=== PATIENT | female | born 1985 | race African-American/Black ===

== ENCOUNTER 2018-06-11 15:53 | Inpatient (IN) | payer MEDICAID ==
[~2018-06-11] VITALS: Ht 165.1 cm; Wt 65.0 kg
[~2018-06-11 15:53] MED LIST: CLIN300C85 PO; NO HOME MEDS
[2018-06-11] MEDS ORDERED: niCARDipine/sod cl 20mg/200ml 200 ML IV ONE (16:10)
[2018-06-11] MEDS: niCARDipine-NS 40mg/200ml IVPB 200 ML IV SCH (17:10)
[2018-06-11 17:26] LABS: BASOPHILS % (AUTO) 0.9 % (0-1); HEMATOCRIT 34.6 % (35.0-45.0); HEMOGLOBIN 11.3 g/dl (12.0-16.0); LYMPHOCYTES # (AUTO) 1.3 X10'3 (1.1-4.8); LYMPHOCYTES % (AUTO) 28.6 % (21-51); MEAN CORPUSCULAR HEMOGLOBIN 26.9 PG (27.0-31.0); MEAN CORPUSCULAR HGB CONC 32.8 g/dL (33.0-36.5); MEAN CORPUSCULAR VOLUME 82.1 FL (78-98); MEAN PLATELET VOLUME 7.5 FL (7.4-10.4); MONOCYTES # (AUTO) 0.5 X10'3 (0-0.9); MONOCYTES % (AUTO) 11.1 % (2-12); NEUTROPHILS # (AUTO) 2.7 X10'3 (1.8-7.7); NEUTROPHILS % (AUTO) 58.4 % (42-75); PLATELET COUNT 330 X10'3 (140-440); RED BLOOD COUNT 4.21 X10'6 (4.20-5.60); RED CELL DISTRIBUTION WIDTH 16.1 % (11.5-14.5); WHITE BLOOD COUNT 4.7 X10'3 (4.5-11.0)
[2018-06-11 17:34] LABS: ALANINE AMINOTRANSFERASE 35 U/L (12-78); ALBUMIN 3.9 G/DL (3.4-5.0); ALKALINE PHOSPHATASE 94 IU/L (46-116); ANION GAP 11 (8-16); ASPARTATE AMINO TRANSFERASE 44 U/L (10-37); BILIRUBIN,TOTAL 0.5 MG/DL (0.1-1.0); BLOOD UREA NITROGEN 8 MG/DL (7-18); BUN/CREATININE RATIO 11.4 (6.6-38.0); CALCIUM 9.1 MG/DL (8.5-10.1); CHLORIDE 100 MMOL/L (99-107); GLUCOSE 82 MG/DL (70-104); POTASSIUM 3.2 MMOL/L (3.5-5.1); SODIUM 138 MMOL/L (135-145); TOTAL CARBON DIOXIDE 26.9 MMOL/L (24-32); eGFR > 90 ML/MIN
[2018-06-11] MEDS ORDERED: labetalol 20mg/4ml (5mg/ml) syringe IV ONE (17:40)
[2018-06-11 17:41] LABS: ETHANOL < 0.010 GM/DL (0.0-0.010); MAGNESIUM 1.7 MG/DL (1.5-2.4)
[2018-06-11 18:16] LABS: URINE AMPHETAMINE SCREEN POSITIVE (Neg); URINE BARBITUATE SCREEN NEGATIVE (Neg); URINE BENZODIAZEPINES SCREEN NEGATIVE (Neg); URINE CANNABINOID SCREEN NEGATIVE (Neg); URINE COCAINE SCREEN NEGATIVE (Neg); URINE METHADONE SCREEN NEGATIVE (Neg); URINE OPIATE SCREEN POSITIVE (Neg); URINE PHENCYCLIDINE SCREEN NEGATIVE (Neg)
[2018-06-11] MEDS ORDERED: mag hydrox/Alum hydrox/simeth 30ml oral suspension PO PRN (19:10)
[2018-06-11] MEDS ORDERED: magnesium hydroxide 30ml (MOM) UD suspension PO PRN (19:10)
[2018-06-11] MEDS ORDERED: ondansetron/PF 4mg/2ml inj IV PRN (19:10)
[2018-06-11] MEDS ORDERED: acetaminophen 325mg tablet PO PRN (19:10)
[2018-06-11] MEDS ORDERED: morphine 4 MG/ML inj SYRINge IV PRN ×2 (19:10)
[2018-06-11 19:59] LABS: CLARITY,URINE CLEAR (Clear); COLOR,URINE YELLOW (Yellow); GLUCOSE, URINE 100 mg/dl (Neg); KETONES,URINE 40 mg/dl (Neg); LEUKOCYTE ESTERASE ,URINE NEGATIVE (Neg); NITRITES, URINE NEGATIVE (Neg); OCCULT BLOOD,URINE NEGATIVE (Neg); PROTEIN,URINE NEGATIVE (Neg); UROBILINOGEN,URINE 0.2 E.U/dL (0.2-1.0)
[2018-06-11 20:07] LABS: UA COLLECTION TYPE OTHER
[2018-06-11 23:00] VITALS: BP 129/88
[2018-06-11] MEDS ORDERED: nitroGLYCERIN 0.4mg SUBLingual tab SL PRN (23:35)
[2018-06-11] MEDS ORDERED: methadone 10mg tablet PO ONE (23:40)
[2018-06-11] MEDS: HYDROcodone/acetaminophen 5mg/325mg tablet PO PRN (23:52)
[2018-06-12] VITALS (9 sets, daily range): BP systolic 122–137; BP diastolic 71–96
--- NOTE | 2018-06-12 00:03 | NUR ---
Patient admitted via stretcher from ED @ 2305 and oriented to room, call nash and current plan of care. MD Garcia and significant other at bedside discussing treatment. Cardene gtt infusing at 5mg/hour. BP 129/88 HR 114 O2 100% on room air RR 16. Patient complains of headache and mild chest discomfort. Orders received to administer nitro sublingual. Will continue to monitor patient closely.
[2018-06-12] MEDS: niCARDipine-NS 40mg/200ml IVPB 200 ML IV SCH ×3 (00:15→08:15)
--- NOTE | 2018-06-12 02:00 | NUR ---
Orientee Medication Administration: For this medication-pass time frame, all medication were reviewed, dispensed, administered and documented per hospital policy by Kajal ROBISON. Orientee documentation: I have reviewed and agree with all interventions, assessments performed and documented by Kajal ROBISON.
[2018-06-12 05:25] LABS: ALBUMIN 3.9 G/DL (3.4-5.0); ANION GAP 11 (8-16); BLOOD UREA NITROGEN 10 MG/DL (7-18); CALCIUM 9.4 MG/DL (8.5-10.1); CHLORIDE 101 MMOL/L (99-107); CREATININE 0.77 MG/DL (0.40-0.90); GLUCOSE 113 MG/DL (70-104); POTASSIUM 3.9 MMOL/L (3.5-5.1); SODIUM 139 MMOL/L (135-145); TOTAL CARBON DIOXIDE 27.5 MMOL/L (24-32); eGFR > 90 ML/MIN
--- NOTE | 2018-06-12 06:06 | NUR ---
Problems reprioritized. Patient report given, questions answered & plan of care reviewed with Bob ROBISON.
--- NOTE | 2018-06-12 06:14 | NUR ---
Patient in room PCU 3023. I have received report from ENRIQUETA Contreras and had the opportunity to ask questions and assume patient care.
[2018-06-12] MEDS ORDERED: FLU VACC QUAD 2018(5 YR UP)/PF 60 MCG/0.5 ML SYRINGE IM ONE (10:00)
[2018-06-12] MEDS ORDERED: amLODIPine 5mg tablet PO ONE (10:20)
[2018-06-12] MEDS: carvedilol 6.25mg tablet PO SCH ×2 (10:27→20:53)
[2018-06-12] MEDS: HYDROcodone/acetaminophen 5mg/325mg tablet PO PRN (13:51)
[2018-06-12] MEDS ORDERED: aminophylline 250mg/10ml inj. IV PRN (15:15)
[2018-06-12] MEDS ORDERED: metoprolol tartrate 1mg/ml inj IV PRN (15:15)
[2018-06-12] MEDS ORDERED: nitroGLYCERIN 0.4mg SUBLingual tab SL PRN (15:15)
[2018-06-12] MEDS ORDERED: regadenoson 0.4mg/5ml syringe IV ONE (15:15)
--- NOTE | 2018-06-12 15:52 | NUR ---
PAGER ID: [phone] MESSAGE: [id number] Génesis Seth: [facility]uc med called and said she will need a cardio consult before they can take her down. ENRIQUETA Rojas Ext [id number]
--- NOTE | 2018-06-12 17:50 | NUR ---
PAGER ID: [phone] MESSAGE: [phone] [id number] she is wondering if she can get methadone for withdrawals and some meds for sleep tonight. ENRIQUETA Rojas Ext [id number]
--- NOTE | 2018-06-12 18:03 | NUR ---
Problems reprioritized. Patient report given, questions answered & plan of care reviewed with ENRIQUETA Rdz.
[2018-06-12] MEDS ORDERED: methadone 10mg tablet PO SCH (21:00)
[2018-06-12] MEDS ORDERED: traZODone 50mg tablet PO SCH (21:00)
[2018-06-13 02:50] VITALS: BP 102/74
[2018-06-13 06:00] VITALS: BP 84/48
--- NOTE | 2018-06-13 06:52 | NUR ---
Patient in room PCU 3024. I have received report from Kajal ROBISON and had the opportunity to ask questions and assume patient care. Pt is resting comfortably in no apparent distress, pt alert and oriented X 4, will continue to monitor.
[2018-06-13 07:00] VITALS: BP 86/51
[2018-06-13 07:00] LABS: ALBUMIN 3.3 G/DL (3.4-5.0); ANION GAP 8 (8-16); BLOOD UREA NITROGEN 24 MG/DL (7-18); BUN/CREATININE RATIO 14.4 (6.6-38.0); CALCIUM 8.8 MG/DL (8.5-10.1); CHLORIDE 100 MMOL/L (99-107); CREATININE 1.67 MG/DL (0.40-0.90); GLUCOSE 114 MG/DL (70-104); POTASSIUM 3.5 MMOL/L (3.5-5.1); SODIUM 138 MMOL/L (135-145); TOTAL CARBON DIOXIDE 30.1 MMOL/L (24-32); eGFR 44 ML/MIN
[2018-06-13] MEDS: carvedilol 6.25mg tablet PO SCH (08:00)
[2018-06-13] MEDS ORDERED: amLODIPine 5mg tablet PO SCH (08:00)
--- NOTE | 2018-06-13 08:02 | NUR ---
PAGER ID: [phone] MESSAGE: [phone] Génesis Seth Med can not do yen scan yet, they need another trop drawn to see trops are still trending down, please call, Alma Delia# [phone]
[2018-06-13 09:30] VITALS: BP 106/59
[2018-06-13] MEDS ORDERED: AMLO2.5T2 PO (10:09)
--- NOTE | 2018-06-13 11:33 | NUR ---
IV discontinued with canula intact, tele discontinued and returned tele monitor back to tele room. Reviewed discharge instructions with patient which included education in regards to new medication, signs and symptoms of high blood pressure and when to return to the hospital. Pt refused social service consult and and referrals to rehabs. Pt stated she had relapsed once and does not feel as though she needs rehab. Instructed pt to follow up with primary care provider within one week. Pt in stable condition and left with belongings. Pt discharged and wheeled off floor in stable condition.
--- NOTE | 2018-06-13 11:48 | NUR ---
Pt. arranged for her own ride home, family to pick her up from the hospital. Alert Oriented and Able to make good decisions. She received instructions for follow up care and those instructions are well understood. She has her written instructions, and visit linda. She will call her primary care physician today for a follow up appointment, she is instructed to ask for a blood pressure machine prescription at the time of her call for this follow up appointment. She understands the importance of taking her blood pressure prior to taking her blood pressure medication. Pt. is independent in all ADL's, and steady on her feet at discharge with no signs or symptoms of distress. Denies desire for drug rehabilitation information at this time. Addiction and family dynamic information is provided.
== END 2018-06-13 11:30 | disposition home or self-care (01) | DRG 199 ==
LOC: ER 15:53 → ED HOLD 19:09 → PCU 3S 23:16
PROVIDERS: ADMIT Internal Medicine; ATTEND Family Medicine
DX: I16.1 Hypertensive emergency (principal); F11.10 Opioid abuse, uncomplicated; F17.210 Nicotine dependence, cigarettes, uncomplicated; G43.909 Migraine, unspecified, not intractable, without status migrainosus; I10 Essential (primary) hypertension; F15.10 Other stimulant abuse, uncomplicated
CPT/HCPCS: 36415; 70450; 71045; 80048; 80053; 80305; 80320; 81003; 83735; 83880; 84484; 85025; 87070; 93005; 93306; 96365; 96375; 99291; G0378; J3490; Q2037

== ENCOUNTER 2018-09-08 22:53 | Emergency (ER) | payer MEDICAID ==
[~2018-09-08] VITALS: Ht 165.1 cm; Wt 61.0 kg
[2018-09-08] MEDS ORDERED: SULF1TAB49 PO (23:52)
[2018-09-08] MEDS ORDERED: sulfamethoxazole/trimethoprim DS (800/160mg) tablet PO ONE (23:55)
[2018-09-09 00:40] VITALS: BP 155/103
== END 2018-09-09 00:44 | disposition home or self-care (01) ==
LOC: ER 22:53
DX: L03.115 Cellulitis of right lower limb (principal); F15.90 Other stimulant use, unspecified, uncomplicated; Z59.0 Homelessness; Z79.899 Other long term (current) drug therapy
CPT/HCPCS: 99283

== ENCOUNTER 2018-11-10 01:28 | Emergency (ER) | payer MEDICAID ==
[~2018-11-10] VITALS: Ht 165.1 cm; Wt 62.0 kg
[2018-11-10 03:31] VITALS: BP 129/91
== END 2018-11-10 04:45 | disposition home or self-care (01) ==
LOC: ER 01:29
DX: R51 Headache (principal); F17.200 Nicotine dependence, unspecified, uncomplicated; F15.90 Other stimulant use, unspecified, uncomplicated; Z59.0 Homelessness
CPT/HCPCS: 99283

== ENCOUNTER 2019-02-17 07:16 | Emergency (ER) | payer MEDICAID | END 2019-02-17 07:45 | disposition left against medical advice (07) | LOC: ER 07:17 | DX: M25.579 Pain in unspecified ankle and joints of unspecified foot (principal); Z53.21 Procedure and treatment not carried out due to patient leaving prior to being seen by health care provider ==

== ENCOUNTER 2019-04-06 22:57 | Emergency (ER) | payer MEDICAID ==
[~2019-04-06] VITALS: Ht 165.1 cm; Wt 63.6 kg
--- NOTE | 2019-04-07 00:19 | NUR ---
Pt is sleeping, respirations even and unlabored. Pt has NSR on the monitor. Pt has stable vitals.
[2019-04-07 00:31] VITALS: BP 137/85
== END 2019-04-07 00:28 | disposition home or self-care (01) ==
LOC: ER 22:57
DX: R07.89 Other chest pain (principal); F15.90 Other stimulant use, unspecified, uncomplicated; F17.200 Nicotine dependence, unspecified, uncomplicated; Z59.0 Homelessness
CPT/HCPCS: 71045; 93005; 99283

== ENCOUNTER 2020-05-26 06:41 | Emergency (ER) | payer MEDICAID ==
[~2020-05-26] VITALS: Ht 165.1 cm; Wt 63.6 kg
[2020-05-26 07:06] VITALS: BP 201/129
[2020-05-26] MEDS ORDERED: DOXYCYCLINE 100MG CAPSULE PO STA (07:49)
[2020-05-26] MEDS ORDERED: cephalexin 500mg capsule PO ONE (07:50)
[2020-05-26] MEDS ORDERED: DOXY100C43 PO (07:51)
[2020-05-26] MEDS ORDERED: CEPH500C5 PO (07:51)
== END 2020-05-26 08:05 | disposition home or self-care (01) ==
LOC: ER 06:42
DX: L03.116 Cellulitis of left lower limb (principal); F11.10 Opioid abuse, uncomplicated; F15.90 Other stimulant use, unspecified, uncomplicated; Z59.0 Homelessness; Z79.2 Long term (current) use of antibiotics
CPT/HCPCS: 76882; 99284

== ENCOUNTER 2021-11-06 06:38 | Emergency (ER) | payer MEDICAID ==
[~2021-11-06] VITALS: Ht 165.1 cm; Wt 62.5 kg
[2021-11-06] MEDS ORDERED: labetalol 100mg tablet PO SCH (07:00)
--- NOTE | 2021-11-06 07:01 | NUR ---
On patients external med history patient had a prescription for labetalol 100 mg BID for a 30 day supply as of april. Addendum: 11/06/21 at [address] Otoole aware of patients blood pressure and previously prescribed labetalol. Dr. Otoole gave verbal order for labetalol 100 mg once now.
[2021-11-06] MEDS ORDERED: oxymetazoline 15 ML nasal spray NS ONE (08:05)
[2021-11-06] MEDS ORDERED: LIDOcaine 40mg/ml topical solution MM ONE ×2 (08:10→10:25)
--- NOTE | 2021-11-06 09:37 | NUR ---
PATIENT CLEARED FOR DISHCARGE AT THIS TIME. ADVISED TO FOLLOW UP WITH PCP AND RETURN IF CONDITION WORSENS. NO OTHER COMLPAINTS OR CONECRNS AT THIS TIME FOLLOWING DISHCARGE TEACHING.
[2021-11-06] MEDS ORDERED: silver nitrate applicator stick TP ONE (10:05)
[2021-11-06 11:29] VITALS: BP 168/102
== END 2021-11-06 09:45 | disposition home or self-care (01) ==
LOC: ER 06:38
DX: R04.0 Epistaxis (principal); F17.200 Nicotine dependence, unspecified, uncomplicated; F12.10 Cannabis abuse, uncomplicated; Z59.00 Homelessness unspecified
CPT/HCPCS: 99283; J3490

== ENCOUNTER 2021-11-08 22:59 | Emergency (ER) | payer MEDICAID ==
[~2021-11-08] VITALS: Ht 165.1 cm; Wt 63.6 kg
[2021-11-09] MEDS ORDERED: cloNIDine 0.1 mg tablet PO ONE ×2 (10:00→11:05)
[2021-11-09] MEDS ORDERED: oxymetazoline 15 ML nasal spray NS ONE (10:00)
[2021-11-09] MEDS ORDERED: LORazepam 2 mg/ml vial IM ONE (12:15)
[2021-11-09 15:03] VITALS: BP 146/89
[2021-11-09] MEDS ORDERED: NALO4SPR BOTHNARES (20:53)
== END 2021-11-09 15:00 | disposition home or self-care (01) ==
LOC: ER 22:59
DX: R04.0 Epistaxis (principal); I10 Essential (primary) hypertension; F15.10 Other stimulant abuse, uncomplicated
CPT/HCPCS: 96372; 99285; J2060; 93005

== ENCOUNTER 2021-11-09 20:04 | Emergency (ER) | payer MEDICAID ==
[~2021-11-09] VITALS: Ht 165.1 cm; Wt 63.6 kg
[2021-11-09] MEDS ORDERED: naloxone 2mg/2ml inj NAS ONE (20:35)
[2021-11-09 20:43] VITALS: BP 170/117
[2021-11-09] MEDS ORDERED: NALO4SPR BOTHNARES (20:53)
--- NOTE | 2021-11-09 20:56 | NUR ---
Patient ambulated to bathroom with no assistance. Pt stated she wants to leave
== END 2021-11-09 21:06 | disposition home or self-care (01) ==
LOC: ER 20:05
DX: T40.2X1A Poisoning by other opioids, accidental (unintentional), initial encounter (principal); R04.0 Epistaxis; Y92.89 Other specified places as the place of occurrence of the external cause; Z59.00 Homelessness unspecified
CPT/HCPCS: 99283; J2310

== ENCOUNTER 2023-12-31 11:51 | Emergency (ER) | payer MEDICAID, SELFPAY ==
[~2023-12-31] VITALS: Ht 165.1 cm; Wt 63.6 kg
[~2023-12-31 11:51] MED LIST changes: -CLIN300C85 PO; +clonidine PO
[2023-12-31] MEDS: cloNIDine 0.1 mg tablet PO ONE ×2 (12:51→16:14)
[2023-12-31] MEDS: normal saline 1000ml 1,000 ML IV ONE (13:20)
[2023-12-31 13:21] LABS: BASOPHILS % (AUTO) 0.3 % (0-1); EOSINOPHILS % (AUTO) 0.1 % (0-6); HEMATOCRIT 37.3 % (35.0-45.0); HEMOGLOBIN 12.4 g/dl (12.0-16.0); LYMPHOCYTES # (AUTO) 0.7 X10'3 (1.1-4.8); LYMPHOCYTES % (AUTO) 7.1 % (21-51); MEAN CORPUSCULAR HEMOGLOBIN 29.3 PG (27.0-31.0); MEAN CORPUSCULAR HGB CONC 33.2 g/dL (33.0-36.5); MEAN CORPUSCULAR VOLUME 88.2 FL (78-98); MEAN PLATELET VOLUME 7.3 FL (7.4-10.4); MONOCYTES # (AUTO) 0.2 X10'3 (0-0.9); MONOCYTES % (AUTO) 2.4 % (2-12); NEUTROPHILS # (AUTO) 8.6 X10'3 (1.8-7.7); NEUTROPHILS % (AUTO) 90.1 % (42-75); PLATELET COUNT 506 X10'3 (140-440); RED BLOOD COUNT 4.23 X10'6 (4.20-5.60); RED CELL DISTRIBUTION WIDTH 14.4 % (11.5-14.5); WHITE BLOOD COUNT 9.6 X10'3 (4.5-11.0)
[2023-12-31] MEDS: metoclopramide 5 mg/ml inj IV ONE (13:21)
[2023-12-31] MEDS: diphenhydrAMINE 50 mg/ml inj IV ONE (13:21)
[2023-12-31 13:33] LABS: BILIRUBIN,URINE NEGATIVE (Neg); CLARITY,URINE CLOUDY (Clear); COLOR,URINE YELLOW (Yellow); GLUCOSE, URINE >=1000 mg/dl (Neg); KETONES,URINE NEGATIVE (Neg); LEUKOCYTE ESTERASE ,URINE NEGATIVE (Neg); NITRITES, URINE NEGATIVE (Neg); OCCULT BLOOD,URINE TRACE-INTACT (Neg); PH,URINE 6.5 (4.8-8.0); PROTEIN,URINE 30 mg/dl (Neg); URINE HCG NEGATIVE (NEG); UROBILINOGEN,URINE 0.2 E.U/dL (0.2-1.0)
[2023-12-31 13:37] LABS: ALANINE AMINOTRANSFERASE 43 U/L (12-78); ALBUMIN 2.9 G/DL (3.4-5.0); ALBUMIN/GLOBULIN RATIO 0.5 (1.1-1.5); ALKALINE PHOSPHATASE 147 IU/L (46-116); ANION GAP 8 (8-16); BILIRUBIN,TOTAL 0.4 MG/DL (0.1-1.0); BLOOD UREA NITROGEN 9 MG/DL (7-18); BUN/CREATININE RATIO 10.3 (10.0-20.0); CALCIUM 9.4 MG/DL (8.5-10.1); CHLORIDE 98 MMOL/L (99-107); CREATININE 0.87 MG/DL (0.40-0.90); GLUCOSE 152 MG/DL (70-104); SODIUM 137 MMOL/L (135-145); TOTAL CARBON DIOXIDE 30.6 MMOL/L (24-32); TOTAL PROTEIN 8.8 G/DL (6.4-8.2); eCRCL 80 ML/MIN; eGFR 89 ML/MIN
[2023-12-31 13:39] LABS: UA COLLECTION TYPE VOIDED
[2023-12-31 13:40] LABS: BACTERIA,URINE 4+ /HPF (Neg); SQUAMOUS EPITHELIAL CELL,UR MODERATE /LPF (FEW)
[2023-12-31 13:41] LABS: URINE AMPHETAMINE SCREEN NEGATIVE (Neg); URINE BARBITUATE SCREEN NEGATIVE (Neg); URINE BENZODIAZEPINES SCREEN NEGATIVE (Neg); URINE CANNABINOID SCREEN NEGATIVE (Neg); URINE COCAINE SCREEN NEGATIVE (Neg); URINE METHADONE SCREEN NEGATIVE (Neg); URINE OPIATE SCREEN NEGATIVE (Neg); URINE PHENCYCLIDINE SCREEN NEGATIVE (Neg); WBC,URINE 50-100 /HPF (0-4)
[2023-12-31 13:48] LABS: PRO BRAIN NATRIURETIC PEPTIDE 1299 PG/ML (0-125); THYROID STIMULATING HORMONE 0.12 ulU/ml (0.34-4.50)
[2023-12-31 13:50] LABS: ASPARTATE AMINO TRANSFERASE 35 U/L (10-37); POTASSIUM 3.6 MMOL/L (3.5-5.1)
[2023-12-31 13:57] LABS: HCG SERUM QL NEGATIVE
[2023-12-31] MEDS: LORazepam 1 MG tablet PO ONE ×2 (14:06→17:30)
[2023-12-31] MEDS: labetalol 20mg/4ml (5mg/ml) syringe IV ONE (14:12)
[2023-12-31] MEDS: ondansetron/PF 4mg/2ml inj IV ONE (14:12)
[2023-12-31] MEDS: proCHLORperazine 10 MG/2 ml inj IV ONE (14:30)
[2023-12-31] MEDS: hydrALAZINE 20mg/ml inj. IV ONE (16:15)
[2023-12-31] MEDS: naloxone 0.4 mg/ml inj IV ONE (17:11)
[2023-12-31] MEDS: buprenorphine/naloxone 8MG-2MG SUBlingual film SL ONE (18:11)
[2023-12-31] MEDS: hyDRALAzine 10mg tablet PO SCH (18:34)
[2023-12-31] MEDS: haloperidol lactate 5mg/ml inj IM ONE (19:55)
[2023-12-31] MEDS: diltiazem 30mg tablet PO ONE (19:59)
[2023-12-31] MEDS: CefTRIAXone 1000mg IM Kit (w/lidocaine diluent) IM ONE (21:07)
[2024-01-01 04:17] VITALS: TEMP 98.1
[2024-01-01] MEDS ORDERED: LOSA-415 PO (05:35)
[2024-01-01] MEDS ORDERED: HYDR50TA4 PO (05:35)
[2024-01-01] MEDS ORDERED: AMLO10TA13 PO (05:35)
[2024-01-01 05:54] VITALS: BP 194/146; PULSE 97; RESP 22; O2SAT 97
== END 2024-01-01 06:15 | disposition home or self-care (01) ==
LOC: ER 11:52
DX: I16.0 Hypertensive urgency (principal); I10 Essential (primary) hypertension; F15.90 Other stimulant use, unspecified, uncomplicated; Z79.899 Other long term (current) drug therapy
CPT/HCPCS: 36415; 71045; 80053; 80305; 81001; 81025; 83880; 84439; 84443; 84484; 84703; 85025; 87088; 93005; 96361; 96372; 96374; 96375; 99291; 99292; J0360; J0696; J0780; J1200; J1630; J2405; J2765; J3490; J7030; 87077; 87186

== ENCOUNTER 2024-01-03 21:57 | Emergency (ER) | payer MEDICAID ==
[~2024-01-03] VITALS: Ht 165.1 cm; Wt 51.8 kg
[~2024-01-03 21:57] MED LIST changes: +AMLO10TA13 PO; +HYDR50TA4 PO; +LOSA-415 PO
[2024-01-04 00:15] VITALS: BP 118/98; PULSE 74; RESP 13; TEMP 98.9; O2SAT 99
== END 2024-01-04 00:17 | disposition home or self-care (01) ==
LOC: ER 21:58
DX: S09.90XA Unspecified injury of head, initial encounter (principal); I10 Essential (primary) hypertension; F15.90 Other stimulant use, unspecified, uncomplicated; F11.10 Opioid abuse, uncomplicated; Z79.899 Other long term (current) drug therapy; W19.XXXA Unspecified fall, initial encounter; Y93.89 Activity, other specified; Y92.89 Other specified places as the place of occurrence of the external cause; Y99.8 Other external cause status
CPT/HCPCS: 70450; 99284

== ENCOUNTER 2024-03-12 20:49 | Emergency (ER) | payer MEDICAID, OTHER ==
[~2024-03-12] VITALS: Ht 165.1 cm; Wt 54.6 kg
[~2024-03-12 20:49] MED LIST changes: -LOSA-415 PO
[2024-03-12 21:16] VITALS: TEMP 97.2
[2024-03-12] MEDS: cloNIDine 0.1 mg tablet PO STA (22:02)
[2024-03-12] MEDS: amLODIPine 5mg tablet PO ONE (22:42)
[2024-03-12] MEDS: hydrALAZINE 25 MG tablet PO SCH (23:23)
[2024-03-12 23:30] VITALS: BP 142/91; PULSE 106; RESP 20; O2SAT 100
[2024-03-12] MEDS ORDERED: AMLO10TA13 PO (23:48)
[2024-03-12] MEDS ORDERED: HYDR50TA4 PO (23:48)
== END 2024-03-13 00:11 | disposition home or self-care (01) ==
LOC: ER 20:49
DX: I10 Essential (primary) hypertension (principal); F15.90 Other stimulant use, unspecified, uncomplicated; Z79.899 Other long term (current) drug therapy; Z59.00 Homelessness unspecified
CPT/HCPCS: 71045; 93005; 99284

== ENCOUNTER 2024-05-09 22:08 | Emergency (ER) | payer OTHER | END 2024-05-09 23:00 | disposition left against medical advice (07) | LOC: ER 22:08 | DX: Z53.21 Procedure and treatment not carried out due to patient leaving prior to being seen by health care provider (principal) ==